=== PATIENT | female | born 1990 | race Caucasian/White ===

== ENCOUNTER 2019-11-29 22:08 | Emergency (ER) | payer OTHER ==
[~2019-11-29] VITALS: Ht 172.7 cm; Wt 127.9 kg
[2019-11-29] MEDS ORDERED: ENDOMETRIN100 MG EC (22:38)
== END 2019-11-30 00:30 | disposition home or self-care (01) ==
LOC: ED 22:08
DX: O20.0 Threatened abortion (principal); Z88.0 Allergy status to penicillin; Z3A.01 Less than 8 weeks gestation of pregnancy
CPT/HCPCS: 76801; 76817; 81001; 84702; 86900; 86901; 99284-25